=== PATIENT | female | born 1965 | race African-American/Black ===

== ENCOUNTER 2018-10-18 11:12 | Emergency (ER) | payer OTHER ==
[~2018-10-18] VITALS: Ht 167.6 cm; Wt 91.0 kg
[2018-10-18] MEDS ORDERED: ATEN100T PO (11:27)
[2018-10-18] MEDS ORDERED: AMLO10TA80 PO (11:27)
[2018-10-18] MEDS ORDERED: SODIUM CHLORIDE 0.9% 1,000 ML IV ONE (11:47)
[2018-10-18] MEDS ORDERED: METHYLPREDNISOLONE SOD SUCC 125 MG/2 ML VIAL IV ONE (12:00)
[2018-10-18] MEDS ORDERED: DIPHENHYDRAMINE 50MG/ML VIAL IV ONE (12:00)
[2018-10-18] MEDS ORDERED: FAMOTIDINE 20MG/2ML VIAL IV ONE (12:00)
[2018-10-18 12:02] LABS: CHLORIDE 107 mEq/L (98-107)
[2018-10-18 12:05] LABS: BASOPHILS % 1.1 % (0.0-2.0); HEMATOCRIT. 39.1 % (36.0-48.0); HEMOGLOBIN. 13.1 g/dL (12.0-16.0); LYMPHOCYTES % 28.1 % (20.0-50.0); MEAN CORPUSCULAR HEMOGLOBIN 28.7 pg (28.0-32.0); MEAN CORPUSCULAR VOLUME 85.9 fL (81.0-99.0); MEAN PLATELET VOLUME 7.9 fl (7.4-10.4); MONOCYTES % 10.1 % (2.0-8.0); NEUTROPHILS % 54.7 % (40.0-76.0); PLATELET 169 x1000/uL (130-400); RED BLOOD CELL COUNT 4.55 mill/uL (4.2-5.4); RED CELL DISTRIBUTION WIDTH 14.3 % (11.6-14.6)
[2018-10-18 12:07] LABS: PROTHROMBIN TIME 10.1 sec (9.6-11.0)
[2018-10-18 15:59] VITALS: BP 137/86
== END 2018-10-18 16:10 | disposition home or self-care (01) ==
LOC: ER 11:12
DX: T78.3XXA Angioneurotic edema, initial encounter (principal); I10 Essential (primary) hypertension; Z90.710 Acquired absence of both cervix and uterus
CPT/HCPCS: 36415; 80053; 85025; 85610; 86850; 86900; 86901; 96374; 96375; 99283; J1200; J2930; J3490; J7030; Z7610

== ENCOUNTER 2018-11-26 10:19 | Emergency (ER) | payer OTHER ==
[~2018-11-26] VITALS: Ht 167.6 cm; Wt 92.0 kg
[~2018-11-26 10:19] MED LIST: AMLO10TA80 PO; ATEN100T PO
[2018-11-26 12:43] LABS: CLARITY URINE CLEAR (CLEAR); COLOR URINE YELLOW (YELLOW); KETONES URINE 3+ (NEGATIVE); LEUKOCYTE ESTERASE URINE NEGATIVE (NEGATIVE); NITRITE URINE NEGATIVE (NEGATIVE); OCCULT BLOOD URINE 3+ (NEGATIVE); PROTEIN URINE NEGATIVE (NEGATIVE); SPECIFIC GRAVITY URINE 1.015 (1.005-1.030); UROBILINOGEN URINE 0.2 E.U./dL (0.2-1.0)
[2018-11-26 14:17] VITALS: BP 158/76
== END 2018-11-26 14:20 | disposition home or self-care (01) ==
LOC: ER 10:19
DX: T78.49XA Other allergy, initial encounter (principal); R30.0 Dysuria; I10 Essential (primary) hypertension; Z90.710 Acquired absence of both cervix and uterus; Z79.899 Other long term (current) drug therapy; X58.XXXA Exposure to other specified factors, initial encounter
CPT/HCPCS: 99283

== ENCOUNTER 2020-02-22 02:07 | Inpatient (IN) | payer OTHER ==
[~2020-02-22] VITALS: Ht 167.6 cm; Wt 98.4 kg
[2020-02-22] MEDS ORDERED: MORPHINE SULFATE 4 MG/ML CPJ (NOT FOR IM USE) IV STA (02:51)
[2020-02-22] MEDS ORDERED: ONDANSETRON HCL 4MG/2ML INJ IV STA (02:51)
[2020-02-22] MEDS ORDERED: ASPIRIN 81MG TABLET PO ONE (03:00)
[2020-02-22] MEDS ORDERED: NITROGLYCERIN OINT 1GM/INCH UDPKT TD ONE (03:00)
[2020-02-22 03:37] LABS: BASOPHILS % 0.6 % (0.0-2.0); EOSINOPHILS % 2.6 % (0.0-5.0); HEMATOCRIT. 40.8 % (36.0-48.0); HEMOGLOBIN. 13.7 g/dL (12.0-16.0); LYMPHOCYTES % 33.7 % (20.0-50.0); MEAN CORPUSCULAR HEMOGLOBIN 28.7 pg (28.0-32.0); MEAN CORPUSCULAR VOLUME 85.5 fL (81.0-99.0); MEAN PLATELET VOLUME 7.9 fl (7.4-10.4); MONOCYTES % 5.5 % (2.0-8.0); NEUTROPHILS % 57.6 % (40.0-76.0); PLATELET 219 x1000/uL (130-400); RED BLOOD CELL COUNT 4.78 mill/uL (4.2-5.4); RED CELL DISTRIBUTION WIDTH 14.2 % (11.6-14.6)
[2020-02-22 03:42] LABS: CHLORIDE 106 mEq/L (98-107)
[2020-02-22] MEDS ORDERED: MAGNESIUM/ALUMINUM HYDROXIDE/SIMETHICONE 30ML UDC PO PRN (13:00)
[2020-02-22] MEDS ORDERED: ACETAMINOPHEN 325MG TABLET PO PRN (13:00)
[2020-02-22] MEDS ORDERED: HYDROCODONE/ACETAMINOPHEN 5/325MG TABLET PO PRN (13:00)
[2020-02-22] MEDS ORDERED: CLONIDINE 0.1MG TABLET PO PRN (13:00)
[2020-02-22] MEDS ORDERED: ENOXAPARIN 40MG/0.4ML SYR SUBCUT SCH (13:00)
[2020-02-22 15:30] VITALS: BP 152/88
[2020-02-22] MEDS: MESALAMINE 400 MG CAPSULE.DR PO SCH (18:23)
[2020-02-22 20:00] VITALS: BP 124/79
[2020-02-22] MEDS: ENOXAPARIN 30MG/0.3ML SYR SUBCUT SCH (20:35)
[2020-02-23] VITALS: BP 159/88
[2020-02-23 03:16] LABS: CLARITY URINE CLEAR (CLEAR); COLOR URINE YELLOW (YELLOW); KETONES URINE NEGATIVE (NEGATIVE); LEUKOCYTE ESTERASE URINE NEGATIVE (NEGATIVE); NITRITE URINE NEGATIVE (NEGATIVE); OCCULT BLOOD URINE 2+ (NEGATIVE); PROTEIN URINE NEGATIVE (NEGATIVE); UROBILINOGEN URINE 0.2 E.U./dL (0.2-1.0)
[2020-02-23 03:24] LABS: *AMPHETAMINES SCREEN URINE NEGATIVE (NEGATIVE); *BARBITURATES SCREEN URINE NEGATIVE (NEGATIVE)
[2020-02-23 03:25] LABS: *BENZODIAZEPINES SCREEN URINE NEGATIVE (NEGATIVE); *COCAINE SCREEN URINE NEGATIVE (NEGATIVE); CANNABINOID URINE SCREEN NEGATIVE (NEGATIVE); METHADONE URINE SCREEN NEGATIVE (NEGATIVE); OPIATES URINE SCREEN PRESUMTIVE POSITIVE (NEGATIVE); PHENCYCLIDINE URINE SCREEN NEGATIVE (NEGATIVE)
[2020-02-23 04:00] VITALS: BP 149/77
[2020-02-23 05:54] LABS: BASOPHILS % 0.3 % (0.0-2.0); EOSINOPHILS % 2.1 % (0.0-5.0); LYMPHOCYTES % 36.6 % (20.0-50.0); MEAN CORPUSCULAR HEMOGLOBIN 28.7 pg (28.0-32.0); MEAN CORPUSCULAR VOLUME 86.5 fL (81.0-99.0); MEAN PLATELET VOLUME 8.4 fl (7.4-10.4); MONOCYTES % 5.3 % (2.0-8.0); NEUTROPHILS % 55.7 % (40.0-76.0); PLATELET 219 x1000/uL (130-400); RED BLOOD CELL COUNT 4.52 mill/uL (4.2-5.4)
[2020-02-23 06:10] LABS: CHLORIDE 105 mEq/L (98-107)
[2020-02-23 06:16] LABS: PHOSPHORUS 3.6 mg/dL (2.5-4.9)
[2020-02-23 06:17] LABS: LDL CHOLESTEROL 38 mg/dL (5-100)
[2020-02-23 06:18] LABS: HDL CHOLESTEROL 92 mg/dL (40-59)
[2020-02-23 07:49] VITALS: BP 144/89
[2020-02-23 08:00] VITALS: BP 144/89
[2020-02-23] MEDS: ENOXAPARIN 30MG/0.3ML SYR SUBCUT SCH (08:04)
[2020-02-23] MEDS: MESALAMINE 400 MG CAPSULE.DR PO SCH ×3 (08:04→12:50)
[2020-02-23] MEDS ORDERED: HYDROCHLOROTHIAZIDE 12.5MG CAPSULE PO SCH (09:00)
[2020-02-23] MEDS ORDERED: ATENOLOL 50 MG TABLET PO SCH (09:00)
[2020-02-23] MEDS ORDERED: AMLODIPINE 10MG TABLET PO SCH (09:00)
[2020-02-23 12:00] VITALS: BP 134/80
[2020-02-23] MEDS ORDERED: HYDR12.54 MT (12:50)
[2020-02-23 13:52] VITALS: BP 135/75
== END 2020-02-23 13:15 | disposition home or self-care (01) | DRG 203 ==
LOC: ER 02:07 → 5WST 04:02 → EDBEDREQTM 04:10 → EDBEDREQ 04:10 → ENRESERV 14:08
PROVIDERS: ADMIT Internal Medicine; ATTEND Internal Medicine
DX: M94.0 Chondrocostal junction syndrome [Tietze] (principal); I49.3 Ventricular premature depolarization; I10 Essential (primary) hypertension; Z90.710 Acquired absence of both cervix and uterus; E83.51 Hypocalcemia
CPT/HCPCS: 36415; 71045; 80048; 80053; 80061; 80305; 81003; 83735; 83880; 84100; 84443; 84484; 85025; 93005; 93306; 93970; 97162; 97165; 99285; J1650; J2270; J2405